=== PATIENT | male | born 1960 | race Caucasian/White ===

== ENCOUNTER 2017-04-05 09:10 | Inpatient (IN) | payer OTHER ==
--- NOTE | 2017-03-28 13:35 | PREOPHP ---
DATE OF ADMISSION: 04/05/2017 REASON FOR ADMISSION: The patient to have surgery with Dr. Connor Santiago on 04/05/2017 at [facility]. HISTORY OF PRESENT ILLNESS: Consultation requested by Dr. Connor Santiago for medical evaluation and clearance of a 56-year-old gentleman, about to undergo surgery. Thank you, Dr. Santiago, for allowing us participate in care of this patient. Trevor Fragoso is a 56-year-old gentleman, issues with his neck, is currently being admitted for correction of the above problem. In terms of his past medical and surgical history, he had surgery on his left foot and ankle post a severe fracture, that being his only fracture and wound up having in 2009, osteomyelitis and some issues, however, has been well. He has had no major issues except for his neck at this particular point in time, and has been relatively healthy. MEDICATIONS: Include the following. 1. Cyclobenzaprine 10 mg p.r.n. t.i.d. 2. Gabapentin 300 mg b.i.d. 3. Losartan 25 mg daily. 4. Singulair 10 mg a day. 5. Protonix 40 mg a day. 6. Aero inhaler 1 puff 2 times a day. 7. Albuterol inhaler 2 puffs every 6 hours as needed for shortness of breath. ALLERGIES: HE IS ALLERGIC TO PENICILLIN, BOTH INJECTABLE AND ORAL. OTHERWISE HAS ONLY SOME ENVIRONMENTAL ALLERGIES BUT NO OTHER MEDICATIONS THAT HE IS ALLERGIC TO. SOCIAL HISTORY: The patient is , has 3 children. He does not smoke. Quit a while back. Alcohol socially. Does drink coffee, is employed and usually has no difficulty sleeping at night. FAMILY HISTORY: Father age 72 of prostate cancer. Mother is 80 in relatively good health. One brother of colon cancer. One is living and well. There is a family history of diabetes and cancer. He knows of no hypertension or stroke or cardiac or thyroid issues in his family. REVIEW OF SYSTEMS: HEENT: Periodic sinus headaches. CARDIORESPIRATORY: Denies any significant chest pain or shortness of breath. GASTROINTESTINAL: No melena or hematemesis, however, does have some symptoms of hyperacidity. GENITOURINARY: No urgency, frequency. MUSCULOSKELETAL: Positive for neck pain. NEUROPSYCHIATRIC: Slight depression because he is not able to do his usual work. GENERAL HEALTH: As above. PHYSICAL EXAMINATION: VITAL SIGNS: Patient's blood pressure was 125/85, pulse was 78 and regular, respirations were 18, temperature 98.3, height 6 feet 1 inch, weight 186 pounds. GENERAL APPEARANCE: The patient was noted to be a well- developed, well-nourished male, alert and cooperative, in no apparent acute distress. Oriented to time, place, and person. HEENT: Head was atraumatic. The eyes pupils were equal, reactive to light and accommodation. Fundi were benign. Tympanic membranes were unremarkable. Nose was negative. Mouth was unremarkable. Fair oral hygiene was present. NECK: Supple without any rigidity. Trachea was midline. Thyroid was within normal limits. Neck veins were flat. Carotid pulses were equal. No bruits were heard. BACK: Exam was unremarkable. CHEST: Symmetrical. Breast and axillary exam did not reveal any masses. LUNGS: Clear to percussion auscultation. HEART: PMI is 5th intercostal space at midclavicular line. Regular sinus rhythm was noted. No significant murmurs, rubs, gallops being elicited. ABDOMEN: Was soft. Good bowel sounds were noted. No significant organomegaly, masses or tenderness. GENITOURINARY: Genitalia normal male external genitalia. Rectal and prostatic exam up-to-date per PCP. EXTREMITIES: Reveal no clubbing, edema, or cyanosis. Peripheral pulses were physiologic. SKIN: Was moist and warm without any eruptions. No gross lymphadenopathy was noted. NEUROLOGIC: Exam was grossly intact. IMPRESSION: 1. C4-C5 and C5-C6 cervical disc disease and stenosis. 2. Hypertension. 3. Asthma/allergies. 4. Degenerative joint disease. 5. Stable health. DISCUSSION: Review of laboratory and other data revealed the following. Patient's chemistry panel including electrolytes, glucose, BUN, creatinine, liver function tests, other than a minimally elevated SGPT were normal. The patient's CBC, sed rate, UA, PT and PTT were normal as well. The patient's EKG revealed sinus bradycardia, left axis deviation, no acute changes being noted. His chest x-ray was within normal limits. His urinary residual postvoid was [address] Santiago, I see no contraindications to this patient undergoing current proposed surgery under desired form of anesthesia. I feel he is a suitable candidate at this particular point in time, and will be more than happy to follow him along with you during his stay at [facility]. Thank you again Dr. Sanitago for allowing us participate in care this patient. Dictated By: Bart Street MD /madhav/crys /Document#: [id number]
[~2017-04-05] VITALS: Ht 185.4 cm; Wt 82.8 kg
[2017-04-05] VITALS (18 sets, daily range): BP systolic 88–139; BP diastolic 58–81; PULSE 74–88; RESP 16–37; Ht 185.4 cm; Wt 82.8 kg
[~2017-04-05 09:10] MED LIST: LACTATED RINGER'S 1,000 ML IV* SCH; SEVOFLURANE 15 MIN ONE; VANCOMYCIN 1 GM in NS 250 ML IVPB SCH
[2017-04-05] MEDS ORDERED: PANT40TA3 PO (09:34)
[2017-04-05] MEDS ORDERED: LOSA25TA5 PO (09:35)
[2017-04-05] MEDS ORDERED: MONT10TA24 PO (09:35)
[2017-04-05] MEDS ORDERED: GABA300C16 PO (09:36)
[2017-04-05] MEDS ORDERED: CYCL-319 PO (09:37)
[2017-04-05] MEDS ORDERED: ALBU18HF INHALATION (09:37)
[2017-04-05] MEDS ORDERED: SURGIFOAM POWDER 1 GM KIT ONE (11:46)
[2017-04-05] MEDS ORDERED: THROMBIN 5000 UNIT VIAL ONE (11:47)
[2017-04-05] MEDS ORDERED: POLYMYXIN/BACITRACIN 1L IRRIG ONE (11:47)
[2017-04-05] MEDS ORDERED: BUPIVACAINE 0.25% (MPF) 30 ML INJ ONE (11:47)
[2017-04-05] MEDS ORDERED: PROPOFOL 20 ML ONE (11:58)
[2017-04-05] MEDS ORDERED: SUCCINYLCHOLINE CHLORIDE 100 MG/5 ML SYG IV ONE (11:58)
[2017-04-05] MEDS ORDERED: GLYCOPYRROLATE 0.4 MG INJ ONE ×2 (11:58→14:45)
[2017-04-05] MEDS ORDERED: LIDOCAINE 2% (SDV) 5 ML INJ ONE (11:58)
[2017-04-05] MEDS ORDERED: ROCURONIUM 50 MG INJ ONE ×2 (11:58→15:22)
[2017-04-05] MEDS ORDERED: NEOSTIGMINE 3 MG/3 ML SYRINGE ONE ×2 (11:58→14:45)
[2017-04-05] MEDS ORDERED: MEPERIDINE 100 MG INJ ONE (11:59)
[2017-04-05] MEDS: D5W-0.45 NACL + KCL 20 MEQ 1,000 ML IV SCH ×2 (12:35→23:08)
--- NOTE | 2017-04-05 12:35 | HPN ---
Date/Time of Note Date/Time of Note DATE: 04/05/17 TIME: 12:35 Interval H&P Admission Note Pt. seen H&P reviewed: No system changes SKYLER XIAO MD Apr 05, 2017 12:35
[2017-04-05] MEDS: VANCOMYCIN 1 GM (PMX) 250 ML IVPB SCH (12:45)
[2017-04-05] MEDS ORDERED: NALOXONE (0.4 MG/ML) INJ IV PRN (13:00)
[2017-04-05] MEDS ORDERED: ZOLPIDEM 5 MG TAB PO PRN (13:00)
[2017-04-05] MEDS ORDERED: AL HYDROX/MG HYDROX/SIMETH 30 ML CUP PO PRN (13:00)
[2017-04-05] MEDS ORDERED: BISACODYL 10 MG SUPP PR PRN (13:00)
[2017-04-05] MEDS ORDERED: HYDROmorphONE 1 MG/ML SYG IV PRN (13:00)
[2017-04-05] MEDS ORDERED: CEPASTAT LOZENGE MT PRN (13:00)
[2017-04-05] MEDS ORDERED: ACETAMINOPHEN 325 MG TAB PO PRN (13:00)
[2017-04-05] MEDS ORDERED: HYDROCODONE/APAP (10/325) TAB PO PRN ×2 (13:00)
[2017-04-05] MEDS ORDERED: BUPIVACAINE 0.5%/EPI (SDV) 10 ML INJ ONE (13:52)
[2017-04-05] MEDS ORDERED: ONDANSETRON 4 MG INJ ONE (14:45)
--- NOTE | 2017-04-05 15:30 | SIPON ---
Date/Time of Note Date/Time of Note DATE: 04/05/17 TIME: 15:29 Operative Report Preoperative Diagnosis cervical stenosis Postoperative Diagnosis cervical stenosis Operation/Procedure Performed acdf C4-6 Surgeon see signature line placement assistant: MARIFER LEGER PA-C Anesthesia Type: general Estimated Blood Loss: 10 - 50 ml's Transfusion Required: no Specimens disk Grafts/Implants ELMER fontaine Complications: no SKYLER XIAO MD Apr 05, 2017 15:30
[2017-04-05] MEDS: HYDROmorphONE 0.2 MG/ML PCA IV SCH (15:52)
[2017-04-05] MEDS: ONDANSETRON 4 MG INJ IV PRN (15:55)
[2017-04-05] MEDS ORDERED: HYDROmorphONE (0.2 MG/ML) 10ML SYG IV PRN ×3 (16:00)
[2017-04-05] MEDS ORDERED: DIPHENHYDRAMINE 50 MG INJ IV PRN (16:00)
[2017-04-05] MEDS ORDERED: ONDANSETRON 4 MG INJ IV PRN (16:00)
[2017-04-05] MEDS ORDERED: FENTAnyl 50 MCG/ML VIAL IV PRN ×2 (16:00)
[2017-04-05] MEDS ORDERED: OXYCODONE/ACETAMINOPHEN (5/325) TAB PO PRN ×2 (16:00)
[2017-04-05] MEDS ORDERED: METOCLOPRAMIDE 10 MG INJ IV PRN (16:00)
[2017-04-05] MEDS ORDERED: LABETALOL HCL 20MG INJ IV PRN (16:00)
[2017-04-05] MEDS ORDERED: EPHEDrine SULFATE 50 MG/5 ML SYG IV PRN (16:00)
[2017-04-05] MEDS ORDERED: MIDAZOLAM 1 MG/ML 2 ML INJ IV PRN (16:00)
[2017-04-05] MEDS ORDERED: MEPERIDINE 25 MG INJ IV PRN (16:00)
[2017-04-05] MEDS ORDERED: hydrALAzine 20 MG INJ IV PRN (16:00)
[2017-04-05] MEDS ORDERED: FENTAnyl 50 MCG/ML VIAL ONE (16:02)
--- NOTE | 2017-04-05 16:04 | RADRPT ---
PROCEDURE: Intraoperative imaging of the cervical spine with fluoroscopy. CLINICAL INDICATION: Neck pain. Intraoperative. TECHNIQUE: 7 images of the cervical spine were obtained in the operating room with an image intens ifier. No radiologist was in attendance. Fluoroscopy time is 12.0 seconds. COMPARISON: No prior study is available for comparison. FINDINGS: Surgical instruments are noted overlying the cervical spine. Images demonstrate anterior fusion wit h plate and screws at C4 - C5 - C6. Intervertebral disc spacers are present at C4-5 and C5-6. IMPRESSION: 1. Intraoperative imaging of the cervical spine. RPTAT: QQ .Bc Jay MD, Date Time Electronically viewed and signed by .Bc Jay MD, on 04/05/2017 16:03 .R/
[2017-04-05] MEDS: FENTAnyl 50 MCG/ML VIAL IV PRN ×3 (16:07→16:17)
[2017-04-05] MEDS: CYCLOBENZAPRINE 10 MG TAB PO PRN ×2 (17:01→23:08)
--- NOTE | 2017-04-05 17:21 | OPR ---
DATE OF OPERATION: 04/05/2017 PREOPERATIVE DIAGNOSIS: C4-5, C5-6 cervical disc disease, stenosis and radiculopathy. POSTOPERATIVE DIAGNOSIS: C4-5, C5-6 cervical disc disease, stenosis and radiculopathy. PROCEDURES: 1. Anterior cervical diskectomy, spinal cord decompression at C4-5 and C5-6. 2. Anterior cervical fusion at C4-5 and C5-6. 3. Placement of intervertebral biomechanical device at C4-5 and C5-6. 4. Anterior hardware placement at C4, C5, and C6. 5. Use of allograft. 6. Use of C-arm flash with interpretation without radiologist present. 7. Intraoperative neuro monitoring (2 hours). 8. Use of operative microscope. IMPLANTS: 1. Zavation 28 mm plate with 16 mm screws. 2. BK peek cages 7 mm x 14 x 16 at C4-5 and 7 mm x 16 x 18 at C5-6. 3. Fiber graft matrix. PRIMARY SURGEON: Connor Santiago MD DIVISION ROAD SUPERVISOR SURGEON: Belem RAMÍREZ NEED FOR FOREIGN CORRESPONDENT: visitor information assistant was required in order to retract the neurovascular elements. FINDINGS: Neural monitoring case revealed right C5 amplitude down 40 percent, right C6 amplitude down 30 percent, right C7 amplitude down 10 percent. At the end of the case nerve signal returned to normal. Patient has significant cervical disease at C4-5 and C5-6 with retrolisthesis and posterior osteophytes resulting in severe stenosis. ESTIMATED BLOOD LOSS: 30 cc. DRAINS: None. SPECIMENS: C4-5 and C5-6 disc. COMPLICATIONS OF PROCEDURES: None. ANESTHESIOLOGIST: Dr. Muñoz. ANESTHESIA: General. INDICATION FOR PROCEDURE: This is a 56-year-old gentleman with neck pain and radiculopathy. Setting of disc disease and stenosis. He has failed nonoperative measures. Therefore, recommended proceeding with the above mentioned surgery. Preoperatively, discussed risks, benefits, alternatives, he understood, wished to proceed. DESCRIPTION OF PROCEDURE IN DETAIL: The patient was identified in the preop holding area, given vancomycin antibiotics, and taken to the operating room, where he was successfully placed under general anesthesia. Neuro monitors were placed. Sequential compressive devices were applied. Neural monitoring was utilized during the procedure for 2 hours to include SSEP, MEP, and EMG. This was for performed by [employer]. Start time was 1:30 p.m. closure time was 3:30 p.m. The patient was placed in the supine position. Arms were tucked. Towel rolls were placed. The neck was extended. Neck is prepped draped usual sterile fashion. The skin was prepped and draped usual sterile fashion. I anesthetized the skin with Marcaine and epinephrine. Incision was then made in the left side of the neck. Skin was incised. Platysma was incised along the skin incision. I then identified the interval between the sternocleidomastoid and strap muscles. I identified the anterior spine. I placed a bent spinal needle and took lateral film to confirm the correct levels. Once this was confirmed, the subperiosteal dissected the longus coli musculature to expose the C4-5 and C5-6 discs. Self-retaining retractor was then placed. The endotracheal cuff was deflated and reinflated. Rongeurs were used to remove the anterior osteophytes. I then performed a radical diskectomy at the C5-6 level using curette, Kerrison punches, and a high-speed bur. I decompressed the spinal cord and neural foramina bilaterally. I prepared the endplates. I placed various trials and chose the appropriate graft height. I then took the peek cage within which I placed the allograft and impacted the intervertebral by biomechanical device into the C5-6 level to complete the anterior fusion at this level. I then turned my attention to the C4-5 level. Again radical discectomy was performed. Patient had partial auto fusion at this level. I decompressed the spinal cord and neural foramina bilaterally. I placed various trials and chose the appropriate graphite. I then took the peek cage within which I placed allograft and impacted the intervertebral biomechanical device into disc space at C4-5 complete anterior fusion here. I then took a separate anterior plate and affixed this anteriorly with 16 mm screws at C4, C5 and C6. Of note, the microscope was brought in in order to perform decompression at both levels. Once the screws were all in, I locked the screws per hotel baggage handler's specification and took final AP and lateral images. I was happy with placement along the hardware in aligned of the spine. The wound was irrigated. All nerve signals returned to normal. Hemostasis achieved with Surgifoam. The wound was irrigated again. The wound was dry and therefore I elected not to place a drain. Retractors removed and I closed the platysma with a running 2 Vicryl stitch. I then closed subcutaneous tissue with the 4 Monocryl stitch. Dermabond and sterile dressings were then applied. The patient was then awakened from anesthesia, and taken recovery stable condition. Lap, sponge, and instrument counts correct times 2. There were no apparent complications during the procedure. The patient will be admitted to orthopedic jose for routine postoperative care to include pain control, antibiotics and physical therapy. Dictated By: Connor Santiago MD /madhav/venus /Document#: [id number] SAEID
--- NOTE | 2017-04-05 17:52 | CONS ---
Date/Time of Note Date/Time of Note DATE: 04/05/17 TIME: 17:48 Assessment/Plan Assessment/Plan Problems: (1) S/P cervical spinal fusion Onset Date: ~ 04/05/2017 Status: Acute Comment: He is postop and is moving his upper extremities with solid strength. (2) Gastroesophageal reflux disease Status: Chronic Comment: Continue prophylactic therapy for now Qualifiers: Esophagitis presence: without esophagitis Qualified Code: K21.9 - Gastroesophageal reflux disease without esophagitis (3) Essential hypertension Status: Chronic Comment: Continue angiotensin II receptor jazmyn therapy (4) Asthma, moderate persistent, well-controlled Status: Chronic Comment: Continue treatment. Please note the patient's control is not as good as he believes Consultation Date/Type/Reason Admit Date/Time Apr 05, 2017 at 09:10 Initial Consult Date April 05, 2017 Type of Consultation: Internal medicine Reason for Consultation Medical management after cervical spine surgery Referring Provider: SKYLER XIAO MD 24 HR Interval Summary Free Text/Dictation 56-year-old gentleman seen postoperative after spinal surgery. At this time the patient requests to have some additional prescription for [place] to take home as he will be able to get his regular supply till of this week. He reports no shortness of breath no chest pain no nausea or vomiting Constitutional: no complaints Detailed Summary Respiratory: no complaints Cardiovascular: no complaints Gastrointestinal: no complaints Genitourinary: no complaints Exam/Review of Systems Vital Signs Vitals Vital Signs Date Time Temp Pulse Resp B/P Pulse Ox O2 Delivery O2 Flow Rate FiO2 04/05/17 16:45 18 04/05/17 16:31 76 125/70 95 Nasal Cannula 2.0 04/05/17 15:47 98.4 Exam Constitutional: alert, oriented Neck: non-tender, supple Respiratory: clear to auscultation, normal air movement Cardiovascular: nl pulses, regular rate and rhythm Medications Medications Current Medications Vancomycin HCl 250 ml @ 125 mls/hr OC IVPB Last administered on 04/05/17 10: 54; Admin Dose 125 MLS/HR; Start 04/05/17 at 06:00; Stop 04/05/17 at 19:00 Lactated Ringer's 1,000 ml @ 0 mls/hr Q0M IV* Last administered on 04/05/17 10:55; Admin Dose 0 MLS/HR; Start 04/05/17 at 06:00 Potassium Chloride/Dextrose/ Sod Cl (D5-1/2ns + KCl 20 Meq) 1,000 ml @ 100 mls/ hr Q10H IV Last administered on 04/05/17 12:35; Admin Dose 100 MLS/HR; Start 04/05/17 at 12:35 Acetaminophen/ Hydrocodone Bitart ([place] (10/325)) 1 tab Q4H PRN PO PAIN LEVEL 1-5; Start 04/05/17 at 13:00 Acetaminophen/ Hydrocodone Bitart ([place] (10/325)) 2 tab Q4H PRN PO PAIN LEVEL 6-10; Start 04/05/17 at 13:00 Hydromorphone HCl 0.2 mg 0.2 mg Q1H PRN IV BREAKTHROUGH PAIN; Start 04/05/17 at 13:00 Vancomycin HCl (Vancocin) 250 ml @ 125 mls/hr Q12H IVPB ; Start 04/05/17 at 13: 00; Stop 04/06/17 at 02:59 Ondansetron HCl (Zofran Inj) 4 mg Q6H PRN IV NAUSEA AND/OR VOMITING Last administered on 04/05/17 15:55; Admin Dose 4 MG; Start 04/05/17 at 13:00 Bisacodyl (Dulcolax Supp) [address] CONSTIPATION; Start 04/05/17 at 13 :00 Docusate Sodium (Colace) 100 mg BID PO ; Start 04/05/17 at 21:00 Al Hydrox/Mg Hydrox/Simethicone (Mag-Al Plus) 15 ml Q6H PRN PO CONSTIPATION/ DYSPEPSIA; Start 04/05/17 at 13:00 Acetaminophen (Tylenol Tab) 650 mg Q4H PRN PO CORTEZ OR TEMP GREATER THAN 101.3F; Start 04/05/17 at 13:00 Cyclobenzaprine HCl (Flexeril) 10 mg TID PRN PO MUSCLE SPASMS Last administered on 04/05/17t 17:01; Admin Dose 10 MG; Start 04/05/17 at 13:00 Phenol (Cepastat Lozenge) 1 lozenge PRN PRN [place] SORE THROAT; Start 04/05/17 at 13:00 Diphenhydramine HCl (Benadryl) 25 mg Q6H PRN IV ITCHING; Start 04/05/17 at 13: 00 Naloxone HCl (Narcan) 0.2 mg Q2M PRN IV RR 8 BREATHS/MIN OR LESS; Start at 13:00 Hydromorphone HCl (Dilaudid SUEDING AND BUFFING MACHINE OPERATOR) SUEDING AND BUFFING MACHINE OPERATOR to be started in PACU Q4PCA IV Last administered on 04/05/17t 15:52; Admin Dose 6 MG; Start 04/05/17 at 13:00 Miscellaneous Information 1. Hold SUEDING AND BUFFING MACHINE OPERATOR at 1,000... SUEDING AND BUFFING MACHINE OPERATOR IV ; Start 04/05/17 at 13: 00 JESSICA MIMS MD Apr 05, 2017 17:52
[2017-04-05] MEDS ORDERED: ALBUTEROL 18 GM INHALER INH PRN (18:00)
[2017-04-05] MEDS: SALMETEROL/FLUTICASONE 250/50 INHA INH SCH (21:00)
[2017-04-05] MEDS: MONTELUKAST 10 MG TAB PO SCH (21:03)
[2017-04-05] MEDS: DOCUSATE SODIUM 100 MG CAP PO SCH (21:04)
[2017-04-05] MEDS: GABAPENTIN 300 MG CAP PO SCH (21:04)
[2017-04-06 00:56] VITALS: BP 131/82; RESP 20
[2017-04-06] MEDS: ALBUTEROL/IPRATROPIUM (NEB) 3 ML AMP HHN SCH ×4 (01:26→19:13)
[2017-04-06] MEDS: VANCOMYCIN 1 GM (PMX) 250 ML IVPB SCH (01:44)
[2017-04-06] MEDS: HYDROmorphONE 0.2 MG/ML PCA IV SCH ×2 (05:24→23:56)
[2017-04-06 05:25] LABS: BASOPHILS % 0.4 % (0.0-2.0); EOSINOPHILS # 0.2 10^3/ul (0.0-0.5); EOSINOPHILS % 1.9 % (0.0-7.0); HEMATOCRIT 38.9 % (42.0-52.0); HEMOGLOBIN 12.8 g/dl (14.0-18.0); LYMPHOCYTES # 0.7 10^3/ul (0.8-2.9); MEAN CORPUSCULAR HEMOGLOBIN 31.5 pg (29.0-33.0); MEAN CORPUSCULAR HGB CONC 32.9 g/dl (32.0-37.0); MEAN CORPUSCULAR VOLUME 95.8 fl (82.0-101.0); MEAN PLATELET VOLUME 8.9 fl (7.4-10.4); MONOCYTE # 0.7 10^3/ul (0.3-0.9); MONOCYTES % 8.6 % (0.0-11.0); NEUTROPHIL # 6.4 10^3/ul (1.6-7.5); NEUTROPHILS % 79.9 % (39.0-77.0); PLATELET COUNT 270 10^3/UL (140-415); RED BLOOD COUNT 4.06 10^6/ul (4.70-6.10); RED CELL DISTRIBUTION WIDTH 12.7 % (11.5-14.5)
[2017-04-06 05:40] LABS: CALCIUM 8.6 mg/dl (8.4-10.2); CREATININE 0.83 mg/dl (0.61-1.24); POTASSIUM 3.7 mmol/L (3.5-5.1)
[2017-04-06] MEDS: PANTOPRAZOLE (EC) 40 MG TAB PO SCH (06:21)
[2017-04-06 08:23] VITALS: BP 117/72; RESP 18
--- NOTE | 2017-04-06 08:49 | PN ---
Date/Time of Note Date/Time of Note DATE: 04/06/17 TIME: 08:48 Assessment/Plan VTE Prophylaxis VTE Prophylaxis Intervention: SCD's Lines/Catheters IV Catheter Type (from Nrsg): Peripheral IV Assessment/Plan Problems: (1) S/P cervical spinal fusion Onset Date: ~ 04/05/2017 Status: Acute Comment: Patient is postop. I believe that he is not having any complication of the surgery will need to keep a careful eye on him. Especially given the history of asthma the use of the incentive spirometer will be very important (2) Gastroesophageal reflux disease Status: Chronic Comment: Stable. We will keep the head of the bed elevated and stay on the appropriate inhibitor drugs Qualifiers: Esophagitis presence: without esophagitis Qualified Code: K21.9 - Gastroesophageal reflux disease without esophagitis (3) Essential hypertension Status: Chronic Comment: Adequate control (4) Asthma, moderate persistent, well-controlled Status: Chronic Comment: He is now on his controller medications and should do well. Subjective 24 Hr Interval Summary Free Text/Dictation She complains of neck pain at surgical incision site and some shoulder pain bilaterally. He reports the preop symptoms he had to the upper extremities have stopped Constitutional: no complaints Respiratory: no complaints Cardiovascular: no complaints Gastrointestinal: no complaints Exam/Review of Systems Vital Signs Vitals Vital Signs Date Time Temp Pulse Resp B/P Pulse Ox O2 Delivery O2 Flow Rate FiO2 04/06/17 08:23 98.4 89 18 117/72 97 04/06/17 08:15 Nasal Cannula 2.0 04/06/17 01:29 28 Intake and Output 04/05/17 04/05/17 04/06/17 15:00 23:00 07:00 Intake Total 1150 ml 620 ml Output Total 20 ml 850 ml Balance 1130 ml -230 ml Exam Constitutional: alert, oriented Neck: other (Now he is wearing the neck collar.) Respiratory: clear to auscultation, normal air movement Cardiovascular: nl pulses, regular rate and rhythm Gastrointestinal: nl liver, spleen, non-tender, soft Results Result Diagram: 04/06/17 0425 04/06/17 0425 Results 24 hrs Laboratory Tests Test 04/06/17 04:25 White Blood Count 8.0 Red Blood Count 4.06 L Hemoglobin 12.8 L Hematocrit 38.9 L Mean Corpuscular Volume 95.8 Mean Corpuscular Hemoglobin 31.5 Mean Corpuscular Hemoglobin Concent 32.9 Red Cell Distribution Width 12.7 Platelet Count 270 Mean Platelet Volume 8.9 Neutrophils % 79.9 H Lymphocytes % 9.0 L Monocytes % 8.6 Eosinophils % 1.9 Basophils % 0.4 Nucleated Red Blood Cells % 0.0 Neutrophils # 6.4 Lymphocytes # 0.7 L Monocytes # 0.7 Eosinophils # 0.2 Basophils # 0.0 Nucleated Red Blood Cells # 0.0 Sodium Level 138 Potassium Level 3.7 Chloride Level 104 Carbon Dioxide Level 30 Anion Gap 8 Blood Urea Nitrogen 11 Creatinine 0.83 Glucose Level 108 Calcium Level 8.6 Magnesium Level 2.0 Medications Medications Current Medications Lactated Ringer's 1,000 ml @ 0 mls/hr Q0M IV* Last administered on 04/05/17 10:55; Admin Dose 0 MLS/HR; Start 04/05/17 at 06:00 Potassium Chloride/Dextrose/ Sod Cl (D5-1/2ns + KCl 20 Meq) 1,000 ml @ 100 mls/ hr Q10H IV Last administered on 04/05/17 23:08; Admin Dose 100 MLS/HR; Start 04/05/17 at 12:35 Acetaminophen/ Hydrocodone Bitart ([place] (10/325)) 1 tab Q4H PRN PO PAIN LEVEL 1-5; Start 04/05/17 at 13:00 Acetaminophen/ Hydrocodone Bitart ([place] (10/325)) 2 tab Q4H PRN PO PAIN LEVEL 6-10; Start 04/05/17 at 13:00 Hydromorphone HCl (Dilaudid) 0.2 mg Q1H PRN IV BREAKTHROUGH PAIN; Start at 13:00 Ondansetron HCl (Zofran Inj) 4 mg Q6H PRN IV NAUSEA AND/OR VOMITING Last administered on 04/05/17 15:55; Admin Dose 4 MG; Start 04/05/17 at 13:00 Bisacodyl (Dulcolax Supp) 10 mg DAILY PRN [place] CONSTIPATION; Start 04/05/17 at 13 :00 Docusate Sodium (Colace) 100 mg BID PO Last administered on 04/05/17 21:04; Admin Dose 100 MG; Start 04/05/17 at 21:00 Al Hydrox/Mg Hydrox/Simethicone (Mag-Al Plus) 15 ml Q6H PRN PO CONSTIPATION/ DYSPEPSIA; Start 04/05/17 at 13:00 Acetaminophen (Tylenol Tab) 650 mg Q4H PRN PO CORTEZ OR TEMP GREATER THAN 101.3F; Start 04/05/17 at 13:00 Cyclobenzaprine HCl (Flexeril) 10 mg TID PRN PO MUSCLE SPASMS Last administered on 04/05/17 23:08; Admin Dose 10 MG; Start 04/05/17 at 13:00 Phenol (Cepastat Lozenge) 1 lozenge PRN PRN MT SORE THROAT; Start 04/05/17 at 13:00 Diphenhydramine HCl (Benadryl) 25 mg Q6H PRN IV ITCHING; Start 04/05/17 at 13: 00 Naloxone HCl (Narcan) 0.2 mg Q2M PRN IV RR 8 BREATHS/MIN OR LESS; Start at 13:00 Hydromorphone HCl (Dilaudid RECOVERY COLLECTOR) RECOVERY COLLECTOR to be started in PACU Q4PCA IV Last administered on 04/06/17 05:24; Admin Dose 6 MG; Start 04/05/17 at 13:00 Miscellaneous Information 1. Hold RECOVERY COLLECTOR at 1,000... RECOVERY COLLECTOR IV ; Start 04/05/17 at 13: 00 Salmeterol Xinafoate/ Fluticasone (Advair 250/50 Diskus) 1 inh BID INH ; Start 04/05/17 at 21:00 Albuterol (Ventolin Hfa) 2 puff Q6H PRN INH WHEEZING AND SOB; Start 04/05/17 at 18:00 Gabapentin (Neurontin) 300 mg BID PO Last administered on 04/05/17 21:04; Admin Dose 300 MG; Start 04/05/17 at 21:00 Losartan Potassium (Cozaar) 25 mg DAILY PO ; Start 04/06/17 at 09:00 Montelukast Sodium (Singulair) 10 mg QHS PO Last administered on 04/05/17 21: 03; Admin Dose 10 MG; Start 04/05/17 at 21:00 Pantoprazole (Protonix Tab) 40 mg DAILY@06 PO Last administered on 04/06/17 06 :21; Admin Dose 40 MG; Start 04/06/17 at 06:00 JESSICA MIMS MD Apr 06, 2017 08:49
[2017-04-06] MEDS: SALMETEROL/FLUTICASONE 250/50 INHA INH SCH ×2 (09:00→21:00)
[2017-04-06] MEDS: GABAPENTIN 300 MG CAP PO SCH ×2 (09:42→20:31)
[2017-04-06] MEDS: LOSARTAN 25 MG TAB PO SCH (09:42)
[2017-04-06] MEDS: DOCUSATE SODIUM 100 MG CAP PO SCH ×2 (09:42→20:31)
[2017-04-06] MEDS: D5W-0.45 NACL + KCL 20 MEQ 1,000 ML IV SCH ×2 (10:01→18:09)
[2017-04-06] MEDS ORDERED: DEXAMETHASONE 10 MG/ML 1 ML INJ IV ONE (11:30)
--- NOTE | 2017-04-06 11:30 | PN ---
Date/Time of Note Date/Time of Note DATE: 04/06/17 TIME: 11:28 Assessment/Plan Lines/Catheters IV Catheter Type (from Nrsg): Peripheral IV Assessment/Plan Assessment/Plan POD #1, s/p ACDF continue pain control, routine care continue PT, ambulate order OT consult for swallowing complaints order decadron Subjective 24 Hr Interval Summary c/o sore throat, difficulty swallowing and gagging, mucus c/o neck pain Exam/Review of Systems Vital Signs Vitals Vital Signs Date Time Temp Pulse Resp B/P Pulse Ox O2 Delivery O2 Flow Rate FiO2 04/06/17 08:23 98.4 89 18 117/72 97 04/06/17 08:15 Nasal Cannula 2.0 04/06/17 01:29 28 Intake and Output 04/05/17 04/05/17 04/06/17 15:00 23:00 07:00 Intake Total 1150 ml 620 ml Output Total 20 ml 850 ml Balance 1130 ml -230 ml Exam Free Text/Dictation AOx3 NVID incision C/D/I hot potato voice Results Result Diagram: 04/06/17 0425 04/06/17 0425 MARIFER LEGER PA-C Apr 06, 2017 11:30
[2017-04-06] MEDS: DIPHENHYDRAMINE 50 MG INJ IV PRN (12:55)
[2017-04-06] MEDS: ONDANSETRON 4 MG INJ IV PRN (13:00)
[2017-04-06 16:53] VITALS: BP 108/65; RESP 18
[2017-04-06 19:30] VITALS: BP 116/64; RESP 19
[2017-04-06] MEDS: CYCLOBENZAPRINE 10 MG TAB PO PRN (20:31)
[2017-04-06] MEDS: MONTELUKAST 10 MG TAB PO SCH (20:31)
[2017-04-07 02:20] VITALS: BP 109/58; RESP 18
[2017-04-07] MEDS: D5W-0.45 NACL + KCL 20 MEQ 1,000 ML IV SCH (04:35)
[2017-04-07] MEDS: DIPHENHYDRAMINE 50 MG INJ IV PRN (05:59)
[2017-04-07] MEDS: PANTOPRAZOLE (EC) 40 MG TAB PO SCH (06:00)
[2017-04-07] MEDS ORDERED: ALBUTEROL/IPRATROPIUM (NEB) 3 ML AMP HHN PRN ×2 (06:00)
[2017-04-07 08:13] VITALS: BP 114/74; RESP 14
[2017-04-07] MEDS: DOCUSATE SODIUM 100 MG CAP PO SCH (08:23)
[2017-04-07] MEDS: LOSARTAN 25 MG TAB PO SCH (08:24)
[2017-04-07] MEDS: SALMETEROL/FLUTICASONE 250/50 INHA INH SCH (08:24)
[2017-04-07] MEDS: GABAPENTIN 300 MG CAP PO SCH (08:24)
[2017-04-07] MEDS: CYCLOBENZAPRINE 10 MG TAB PO PRN (08:28)
[2017-04-07] MEDS: ALBUTEROL/IPRATROPIUM (NEB) 3 ML AMP HHN SCH ×2 (08:37→13:49)
--- NOTE | 2017-04-07 21:27 | DS ---
DATE OF ADMISSION: 04/05/2017 DATE OF DISCHARGE: 04/07/2017 ADMITTING DIAGNOSIS: Cervical disc disease. FINAL DIAGNOSES: Status post anterior cervical discectomy and fusion. PROCEDURE: Patient taken the operating room April 06 and underwent cervical fusion. HOSPITAL COURSE: The patient was admitted to the orthopedic [facility] after undergoing the above procedure. On postoperative day 1, he was complaining that his uvula was making it difficult for him to breathe and swallow. He was giving a steroid. This helped significantly, and by postoperative day 2, he was deemed stable for discharged to follow up with the undersigned. Dictated By: Connor Santiago MD /madhav/olivia /Document#: [id number]
== END 2017-04-07 14:42 | disposition home or self-care (01) | DRG 473 ==
LOC: REC 09:10 → MS1 16:46
PROVIDERS: ADMIT Specialist; ATTEND Specialist
PROC: 0RT30ZZ Resection of Cervical Vertebral Disc, Open Approach (ICD-10-PCS; 2017-04-05)
PROC: 4A11X4G Monitoring of Peripheral Nervous Electrical Activity, Intraoperative, External Approach (ICD-10-PCS; 2017-04-05)
PROC: 0RG20A0 Fusion of 2 or more Cervical Vertebral Joints with Interbody Fusion Device, Anterior Approach, Anterior Column, Open Approach (ICD-10-PCS; principal; 2017-04-05 12:00)
DX: M50.121 Cervical disc disorder at C4-C5 level with radiculopathy (principal); I10 Essential (primary) hypertension; M48.02 Spinal stenosis, cervical region; M19.90 Unspecified osteoarthritis, unspecified site; K21.9 Gastro-esophageal reflux disease without esophagitis; J45.40 Moderate persistent asthma, uncomplicated
CPT/HCPCS: 72052; 80048; 83735; 85025; 86999; 94640; 94664; 97110; 97116; 97162; 97167; 97530; J1100; J1170; J1200; J2175; J2405; J2710; J3010; J3370; J3480; J7999